=== PATIENT | female | born 1950 | race Caucasian/White ===

== ENCOUNTER 2019-04-23 12:27 | Outpatient (REF) | payer MEDICARE, SELFPAY ==
[2019-04-25 10:49] LABS: Measles IgG Antibody Negative; Mumps Antibody IgG Positive (Negative); Rubella IgG Ab (UVM) Positive
[2019-04-25 17:38] LABS: Hep A Total Ab w Rflx IgM Positive (NEGAT)
[2019-04-28 08:27] LABS: Hep A Antibody IgM Negative (NEGAT)
[2019-04-28 11:06] LABS: HBs Antibody, Quant <3.1 mIU/mL; Hepatitis B Surface Ab Negative
== END 2019-04-23 12:47 ==
LOC: NCHCN 12:27
PROVIDERS: PCP Nurse Practitioner Family; Visit Provider Family Medicine
DX: Z11.59 Encounter for screening for other viral diseases (principal); Z01.84 Encounter for antibody response examination
CPT/HCPCS: 86706; 86709; 87340; 86735; 86762; 86765

== ENCOUNTER 2019-09-03 10:33 | Outpatient (REF) | payer MEDICARE, SELFPAY ==
[2019-09-03 22:27] LABS: Abs Immature Grans 0.04 k/cumm (0.0-0.09); Absolute Basophil Count 0.05 k/cumm (0.0-0.2); Absolute Eosinophil Count 0.16 k/cumm (0.0-0.7); Absolute Lymphocyte Count 1.41 k/cumm (1.2-3.4); Absolute Monocyte Count 0.49 k/cumm (0.11-0.7); Absolute Neutrophil Count 3.38 k/cumm (1.2-6.7); Basophils % 0.9; Eosinophils % 2.9; HGB 13.3 g/dL (12.0-15.5); Immature Grans % 0.7; Lymphocytes % 25.5; Mean Corp. HGB Concentration 33.3 g/dL (32.0-36.0); Mean Corpuscular Volume 90.3 fL (80-95); Mean Platelet Volume 9.7 fL (8.0-11.0); Monocytes % 8.9; Neutrophils % 61.1; Platelet Count 381 x1000/uL (130-400); RBC 4.43 m/cumm (4.00-5.20); RBC Distribution Width 11.9 % (11.7-14.6); White Blood Cell Count 5.53 k/cumm (4.4-10.8)
[2019-09-03 22:41] LABS: Hemoglobin A1C 5.7 % (4.5-6.2)
[2019-09-03 22:43] LABS: Anion Gap 11.5 mmol/L (3-11); BUN 10 mg/dL (7-18); CO2 25.5 mmol/L (21.0-32.0); CREATININE 0.69 mg/dL (0.55-1.02); Calculated LDL 184 mg/dL; Chloride 104 mmol/L (98-107); Cholesterol 264 mg/dL (<200); Glucose 84 mg/dL (74-106); HDL Cholesterol 57 mg/dL (40-60); Potassium 3.8 mmol/L (3.5-5.1); Sodium 141 mmol/L (136-145); Triglyceride 115 mg/dL (<150)
== END 2019-09-03 10:53 ==
LOC: NCHCN 10:33
PROVIDERS: PCP Nurse Practitioner Family; Visit Provider Family Medicine
DX: E11.9 Type 2 diabetes mellitus without complications (principal); E78.5 Hyperlipidemia, unspecified; K92.2 Gastrointestinal hemorrhage, unspecified
CPT/HCPCS: 80048; 80053; 80061; 83690; 82607; 82746; 83036; 83540; 83550; 84443; 85025; 85610

== ENCOUNTER 2024-05-13 15:28 | Outpatient (REF) | payer MEDICARE, SELFPAY ==
[2024-05-13 15:04] LABS: HCT 38.8 % (36.0-46.0); HGB 13.2 g/dL (11.2-15.7); MCH 30.8 pg (27.0-33.0); MCV 90 fL (80-95); MPV 9.3 fL (8.0-11.0); Platelet Count 360 10^3/uL (130-400); RBC 4.29 10^6/uL (3.93-5.22); RDW 11.8 % (11.7-14.6); RDW-SD 39.1 fL; WBC 5.23 10^3/uL (4.4-10.8)
[2024-05-13 15:20] LABS: ALT 26 U/L (14-59); AST 19 U/L (15-37); Albumin 3.4 g/dL (3.4-5.0); Alkaline Phosphatase 80 U/L (46-116); Anion Gap 7.8 mmol/L (3-11); BUN 10 mg/dL (7-18); CO2 27.2 mmol/L (21.0-32.0); CREATININE 0.7 mg/dL (0.55-1.02); Calcium 9.2 mg/dL (8.5-10.1); Calculated LDL 154 mg/dL (<100); Chloride 104 mmol/L (98-107); Cholesterol 230 mg/dL (<200); Estimated GFR 92.41 (mL/min/1.73m2); Glucose 95 mg/dL (74-106); HDL Cholesterol 53 mg/dL (40-60); Potassium 4.2 mmol/L (3.5-5.1); Sodium 139 mmol/L (136-145); Total Protein 6.5 g/dL (6.4-8.2); Triglyceride 116 mg/dL (<150)
== END 2024-05-13 15:29 | disposition home or self-care (01) ==
LOC: NCHCN 15:28
PROVIDERS: PCP Nurse Practitioner Family; Visit Provider Nurse Practitioner Family
DX: Z00.00 Encounter for general adult medical examination without abnormal findings (principal); Z13.220 Encounter for screening for lipoid disorders
CPT/HCPCS: 80053; 80061; 85027

== ENCOUNTER 2024-08-26 12:18 | Outpatient (REF) | payer MEDICARE, SELFPAY ==
--- NOTE | 2024-08-26 11:00 | PAPFT_PTH ---
PATIENT: Sera Lanier LOC: [facility] U#:[id number] AGE/SX: 73/F ROOM: RE08/26/[address]: Gala Carver : 1950 BED: DIS: 08/26/2024 SPEC #: [id number] RECD: 08/26/24 17:34 STATUS: BOYSaw REVijaya #: [id number] ADRIANE: 08/26/24 11:[address]: Gala Carver DEPT: [facility]LY [facility], [facility] Cytology RECD BY: Jessica Noble ENTERED: 08/26/24 17:35 SP TYPE: PAPFT OTHR DR: Aleshia Roth Tissues: 1 - CX/ENDOCX FOR PAP SMEARS Procedures: PAP THIN PREP/[facility] Screening HPV DNA PROBE Comments: [id number] (HPV 16 & 18/45) (CHLAMYDIA/GC)
[2024-08-27 11:48] LABS: Chlamydia Result Negative (Negative); GC Result Negative (Negative)
== END 2024-08-26 12:19 | disposition home or self-care (01) ==
LOC: NCHCN 12:18
PROVIDERS: PCP Nurse Practitioner Family; Visit Provider Nurse Practitioner Family
DX: Z11.51 Encounter for screening for human papillomavirus (HPV) (principal); Z01.419 Encounter for gynecological examination (general) (routine) without abnormal findings
CPT/HCPCS: 87491; 87591; 88142; 87624

== ENCOUNTER 2025-05-07 08:50 | Outpatient (REF) | payer MEDICARE, SELFPAY ==
[2025-05-07 15:28] LABS: HCT 37.5 % (36.0-46.0); HGB 12.5 g/dL (11.2-15.7); MCH 30.9 pg (27.0-33.0); MCHC 33.3 % (32.0-36.0); MCV 93 fL (80-95); MPV 9.6 fL (8.0-11.0); Platelet Count 320 10^3/uL (130-400); RBC 4.05 10^6/uL (3.93-5.22); RDW 11.9 % (11.7-14.6); RDW-SD 40.4 fL; WBC 5.32 10^3/uL (4.4-10.8)
[2025-05-07 16:10] LABS: ALT 24 U/L (14-59); AST 18 U/L (15-37); Albumin 3.5 g/dL (3.4-5.0); Alkaline Phosphatase 85 U/L (46-116); Anion Gap 8.9 mmol/L (3-11); BUN 12 mg/dL (7-18); Bilirubin, Total 0.6 mg/dL (0.2-1.0); CO2 27.1 mmol/L (21.0-32.0); Calcium 8.7 mg/dL (8.5-10.1); Chloride 104 mmol/L (98-107); Estimated GFR 95.31 (mL/min/1.73m2); Glucose 98 mg/dL (74-106); Potassium 4.1 mmol/L (3.5-5.1); Sodium 140 mmol/L (136-145); Total Protein 6.2 g/dL (6.4-8.2)
== END 2025-05-07 08:51 | disposition home or self-care (01) ==
LOC: NCHCN 08:50
PROVIDERS: PCP Nurse Practitioner Family; Visit Provider Nurse Practitioner Family
DX: Z13.89 Encounter for screening for other disorder (principal); Z00.00 Encounter for general adult medical examination without abnormal findings
CPT/HCPCS: 80053; 85027